=== PATIENT | male | born 1950 | race Caucasian/White ===

== ENCOUNTER 2017-10-19 14:32 | Emergency (ER) | payer MEDICARE, OTHER ==
[2017-10-19 15:11] LABS: BASO # 0.1 x10^3/uL (0.0-0.2); BASO % 1 % (0-3); EOS # 0.1 x10^3/uL (0.0-0.7); EOS % 1 % (0-3); HEMATOCRIT 46.8 % (39.0-53.0); HEMOGLOBIN 15.8 g/dL (13.0-17.5); LYMPH # 2.7 x10^3/uL (1.0-4.8); LYMPH % 28 % (24-48); MEAN CORPUSCULAR HEMOGLOBIN 32 pg (25-35); MEAN CORPUSCULAR HGB CONC 34 g/dL (31-37); MEAN CORPUSCULAR VOLUME 95 fL (79-100); MONO # 0.7 x10^3/uL (0.0-1.1); MONO % 7 % (0-9); NEUT # 6.1 x10^3uL (1.8-7.7); NEUT % 63 % (31-73); PLATELET COUNT 316 x10^3/uL (140-400); RED BLOOD COUNT 4.95 x10^6/uL (4.30-5.70); RED CELL DISTRIBUTION WIDTH 13.3 % (11.5-14.5); WHITE BLOOD COUNT 9.7 x10^3/uL (4.0-11.0)
[2017-10-19 15:15] LABS: CALCIUM 9.1 mg/dL (8.5-10.1); CREATININE 1.5 mg/dL (0.7-1.3); POTASSIUM 3.4 mmol/L (3.5-5.1)
--- NOTE | 2017-10-19 15:35 | RAD ---
RS Compliance Statement: One or more of the following individualized dose reduction techniques were utilized for this examination: 1. Automated exposure control 2. Adjustment of the mA and/or kV according to patient size 3. Use of iterative reconstruction technique CT HEAD WITHOUT CONTRAST History: new seizure onset today. No prior seizure. Comparison: None. Procedure: Axial images are obtained of the head from the skull base through the vertex without IV contrast. Findings: Johns-white matter differentiation is preserved. The ventricles and sulci are normal for the patient's age.. No mass-effect, midline shift, hemorrhage or obvious acute infarction is identified. Basilar cisterns are patent. Bone windows demonstrate no significant calvarial abnormality.The visualized paranasal sinuses appear clear. Mastoid air cells are well aerated. IMPRESSION: No acute intracranial abnormality.
--- NOTE | 2017-10-19 15:39 | PHYS DOC ---
General Chief Complaint: SEIZURE Stated Complaint: SEIZURE Time Seen by MD: 14:46 Source: patient, family Exam Limitations: no limitations Problems: History of Present Illness Initial Comments Patient is a 66-year-old male brought to the ED by EMS with new onset seizure. EMS reports they found the patient appearing to be postictal, he was combative however did ultimately agree to EMS transport. Glucose was 191. Family reports that over the past several months the patient has had increasing frequency and duration of period where he appears to "checkout." They say that they will be in the middle of a conversation and suddenly he will get a blank face and will not respond to them verbally. The patient states that he does recall these events and he has been frustrated with them in the past as he understood what they were saying but he was unable to verbalize a response. Family reports that today while shopping they were walking to the car and the patient had one of his checkout episodes again, they say it lasted about 2 minutes. At that point they say the patient reported his face and began shaking , they say they were able to lower him to the ground however due to his apparent tonic-clonic seizure activity he did suffer some minor skin abrasions at the back of the head and forehead. When he awoke they say the patient appeared to be confused and scared, and that he did give EMS trouble initially when I try to transfer him. Patient states that his right first recollection is some point in the ambulance, he does not recall any of the events that took place in the parking lot. He denies any headache no focal neurologic deficit, he has some minor lower lip tenderness where it appears he bit himself but has no open laceration. He denies any new loose teeth or other injuries. Patient did lose control of his bladder. Timing/Duration: 1/2 hour Severity: severe Modifying Factors: improves with other Associated Symptoms: seizure, other Allergies: Coded Allergies: No Known Drug Allergies (Unverified , 10/19/17) Past Medical History Medical History: no pertinent history Surgical History: noncontributory Social History Smoker: non-smoker Alcohol: occasionally Drugs: none Review of Systems Constitutional: see HPI, denies chills, denies diaphoresis, denies fever EENTM: see HPI, denies eye pain, denies blurred vision, denies ear pain, denies ear discharge, denies nose pain Respiratory: denies cough, denies shortness of breath, denies wheezing Cardiovascular: see HPI, denies chest pain, denies palpitations Gastrointestinal: denies abdominal pain, denies diarrhea, denies nausea, denies vomiting Genitourinary: denies dysuria, denies frequency, denies hematuria Musculoskeletal: denies back pain, denies joint swelling, denies neck pain Psychiatric/Neurological: see HPI Hematologic/Lymphatic: denies blood clots, denies easy bleeding, denies easy bruising Physical Exam General Appearance: WD/WN, no apparent distress Eyes: bilateral eye normal inspection, bilateral eye PERRL, bilateral eye EOMI Ear, Nose, Throat: hearing grossly normal, normal ENT inspection (bruising of the lower lip consistent with bite wound), normal pharynx Neck: non-tender, full range of motion, supple Respiratory: chest non-tender, normal breath sounds, no respiratory distress Cardiovascular: normal peripheral pulses, regular rate, rhythm Gastrointestinal: normal bowel sounds, non tender, soft Back: no CVA tenderness, no vertebral tenderness Extremities: normal range of motion, non-tender, normal inspection 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 Interpreted by Dr. Carrillo. PATIENT: ALLEGRA PEDRAZA ACCOUNT: [id number] : 1950 LOCATION: ER AGE: 66 SEX: M EXAM STATUS: PRE ER ORD. PHYSICIAN: FIONA CARRILLO DO REASON: new seizure PROCEDURE: CT HEAD WO CONTRAST PQRS Compliance Statement: One or more of the following individualized dose reduction techniques were utilized for this examination: 1. Automated exposure control 2. Adjustment of the mA and/or kV according to patient size 3. Use of iterative reconstruction technique CT HEAD WITHOUT CONTRAST History: new seizure onset today. No prior seizure. Comparison: None. Procedure: Axial images are obtained of the head from the skull base through the vertex without IV contrast. Findings: Johns-white matter differentiation is preserved. The ventricles and sulci are normal for the patient's age.. No mass-effect, midline shift, hemorrhage or obvious acute infarction is identified. Basilar cisterns are patent. Bone windows demonstrate no significant calvarial abnormality.The visualized paranasal sinuses appear clear. Mastoid air cells are well aerated. IMPRESSION: No acute intracranial abnormality. DICTATED AND SIGNED BY: CARLEEN LEZAMA MD DATE: 10/19/17 1530 CC: FIONA CARRILLO DO ~ Pertinent labs: Potassium 3.4, BUNs 21, creatinine 1.5, lactic acid 7.7 1614: I discussed the patient with personal care aid neurologist at [facility] Dr. Sosa. After thorough discussion of the patient he recommends inpatient evaluation including MRI and EEG. 1616: I discussed the patient with personal care aid hospitalist at [facility] Dr. Anderson. After thorough discussion of the patient and upon realizing patient will need an MRI she requests transfer to [facility]. She states that administration as recommended patient is needing MRI evaluation be transferred and admitted at [facility] due. dryer feeder hospitalist at [facility] is being paged. 1704: I discussed the patient with personal care aid hospitalist at [facility] Dr. Garcia. After thorough discussion she accepts the patient for EMS transfer and inpatient telemetry admission at [facility]. Departure Time of Disposition: 17:41 Disposition: 02 XFER SHT-TRM HOSP Diagnosis: newly diagnosed seizure disorder Condition: IMPROVED Additional Instructions: EMS transfer to [facility] for inpatient telemetry admission Dr. Garcia is accepting. IFONA CARRILLO DO Oct 19, 2017 15:39
--- NOTE | 2017-10-19 15:58 | EKG ---
[address] [address] Test Date: 2017-10-19 Test Time: 15:05:21 Pat Name: ALLEGRA PEDRAZA Department: Room: Gender: M Call Center Manager: MARIALUISA : 1950 Requested By: FIONA CARRILLO Order Number: [id number] Reading MD: Eric Miranda MD Measurements Intervals [place] Rate: 92 P: 35 WY: 150 QRS: 28 QRSD: 88 T: 38 QT: 342 QTc: 428 Interpretive Statements SINUS RHYTHM Electronically Signed On 10-21-2017 12:29:48 [employer] by Eric Miranda MD
[2017-10-19 17:30] LABS: AMPHETAMINE/METHAMPHETAMINE NEG (NEG); BARBITURATES NEG (NEG); BENZODIAZEPINES NEG (NEG); CANNABINOIDS NEG (NEG); COCAINE NEG (NEG); METHADONE NEG (NEG); OPIATES NEG (NEG); PHENCYCLIDINE NEG (NEG)
[2017-10-19 18:03] VITALS: BP 156/94
== END 2017-10-19 18:14 | disposition short-term general hospital (02) ==
LOC: ER 14:32
DX: G40.409 Other generalized epilepsy and epileptic syndromes, not intractable, without status epilepticus (principal); S00.81XA Abrasion of other part of head, initial encounter; S00.01XA Abrasion of scalp, initial encounter; X58.XXXA Exposure to other specified factors, initial encounter; Y93.89 Activity, other specified; Y99.8 Other external cause status; Y92.89 Other specified places as the place of occurrence of the external cause
CPT/HCPCS: 36415; 70450; 80048; 80307; 83605; 85025; 93005; 99285; G0480; G0479